=== PATIENT | male | born 1980 | race African-American/Black ===

== ENCOUNTER 2017-07-18 08:15 | Emergency (ER) | payer SELFPAY ==
--- NOTE | 2017-07-18 09:13 | ED Physician Documentation ---
Lower Extremity Injury - HISTORIAN Historian: patient - HPI Stated Complaint: foot injury Chief Complaint: Lower Extremity Injury Where: home Severity: moderate Context: direct blow (ran into wall) Modifying Factors:: pain on movement (2, 3, 4th toes) - ROS CONST: no problems CVS/RESP: none GI/: denies: problems urinating, nausea, vomiting, other MS/SKIN/LYMPH: none NEURO: denies: headache, head injury, anxiety, depression - PAST HX Past History: none Allergies/Adverse Reactions: Allergies Allergy/AdvReac Type Severity Reaction Status Date / Time ibuprofen Allergy Mild Verified 07/18/17 08:28 naproxen Allergy Verified 07/18/17 08:28 Home Medications: Ambulatory Orders Medication Instructions Recorded Albuterol Sulfate [ProAir 1 puff INH DAILY 07/18/17 RespiClick] - SOCIAL HX Smoking History: cigarettes - FAMILY HX Family History: denies: none - VITAL SIGNS Vital Signs: Vital Signs Temp Pulse Resp BP Pulse Ox 98.6 F 80 16 115/80 98 07/18/17 08:15 07/18/17 09:30 07/18/17 09:30 07/18/17 09:30 07/18/17 09:30 - REVIEWED ASSESSMENTS Nursing Assessment Reviewed: Yes Vitals Reviewed: Yes ED Results Lab/Radiology - Radiology Radiology Impressions: Three views of right foot CLINICAL HISTORY: Injury. Pain. FINDINGS: Examination right foot in plantar, lateral and oblique views demonstrates degenerative changes with narrowing of the 1st metatarsophalangeal joint and minimal osteophyte formation. There is no evident fracture and no lytic or blastic lesion. IMPRESSION: Degenerative changes. No fracture. Electronically signed on Jul 18, 2017 8:59:40 AM CDT by: Hank Herrera - Orders Orders: ED Orders Category Date Time Status FOOT 3 VIEWS OR MORE [RAD] Stat Exams 07/18/17 Taken Lower Extremities Injury Phy - Physical Exam General Appearance: mild distress Ankle: bilateral: non-tender, normal inspection, normal range of motion, no evidence of injury Foot: right foot: soft tissue tenderness (2nd toe), other (PPP 2+, no abrasion; ROM intact. ), left foot: non-tender, bilateral foot: normal inspection, normal range of motion, no evidence of injury Gait: normal Neuro/Vascular/Tendon: no vascular compromise, motor nml, sensation nml, ROM nml Resp/CVS: reg. rate & rhythm Discharge Clincal Impression: Foot contusion Qualifiers: Encounter type: initial encounter Laterality: right Qualified Code(s): S90.31XA - Contusion of right foot, initial encounter Referrals: Primary Doctor,No [Primary Care Provider] - 2 Days Condition: Stable Disposition: 01 HOME, SELF-CARE Decision to Admit: NO Decision Time: 09:13
[2017-07-18 09:31] VITALS: BP 115/80
--- NOTE | 2017-07-18 14:33 | Diagnostic Imaging Report ---
RIOS HUIZAR (ASSISTANT DIRECTOR OF RESIDENCE LIFE) - ER [facility] [address] [facility].[address] [address] Report Submission Date: Jul 18, 2017 8:59:40 AM CDT Patient Study Name: TOMMY VICKERS Date: Jul 18, 2017 8:34:08 AM CDT Modality Type: DX Gender: M Description: LOWER EXTREMITY : 78 Institution: [facility] Physician: RIOS HUIZAR (JOSEFINA) - ER Three views of right foot CLINICAL HISTORY: Injury. Pain. FINDINGS: Examination right foot in plantar, lateral and oblique views demonstrates degenerative changes with narrowing of the 1st metatarsophalangeal joint and minimal osteophyte formation. There is no evident fracture and no lytic or blastic lesion. IMPRESSION: Degenerative changes. No fracture. Electronically signed on Jul 18, 2017 8:59:40 AM CDT by: Hank LOUISE
--- NOTE | 2017-07-19 06:41 | Diagnostic Imaging Report ---
RIOS HUIZAR (MANAGER FORENSIC) - ER [facility] [address] [facility].[address] [address] Report Submission Date: Jul 18, 2017 8:59:40 AM CDT Patient Study Name: TOMMY VICKERS Date: Jul 18, 2017 8:34:08 AM CDT Modality Type: DX Gender: M Description: LOWER EXTREMITY : 78 Institution: [facility] Physician: RIOS HUIZAR (JOSEFINA) - ER Three views of right foot CLINICAL HISTORY: Injury. Pain. FINDINGS: Examination right foot in plantar, lateral and oblique views demonstrates degenerative changes with narrowing of the 1st metatarsophalangeal joint and minimal osteophyte formation. There is no evident fracture and no lytic or blastic lesion. IMPRESSION: Degenerative changes. No fracture. Electronically signed on Jul 18, 2017 8:59:40 AM CDT by: Hank LOUISE
== END 2017-07-18 09:23 | disposition home or self-care (01) ==
LOC: ED 08:15
DX: S90.31XA Contusion of right foot, initial encounter (principal); X58.XXXA Exposure to other specified factors, initial encounter; Y92.9 Unspecified place or not applicable; Y93.89 Activity, other specified
CPT/HCPCS: 73630; 99282

== ENCOUNTER 2018-02-14 14:46 | Emergency (ER) | payer SELFPAY ==
--- NOTE | 2018-02-14 15:09 | ED Physician Documentation ---
Shoulder Injury/Pain - HISTORIAN Historian: patient - HPI Stated Complaint: PAIN Chief Complaint: Shoulder Injury/ Pain Additional Information: Patient presents to ED with a 1 week history of right shoulder/right chest and right rib pain. 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 The following day he began to experience right chest pain radiating to his right shoulder and right neck. He rate the pain 7/10 with movement and 2/10 with rest. Moving his right arm makes the pain worse, resting improves the pain. He states a hot shower make the pain better. He denies shortness of breath, nausea/vomiting or diaphoresis. He does not have a strong family history of cardiac issues. Onset: days ago (7) Where: work Severity: moderate Pain: persistent Context: other (over use) Associated Symptoms: denies: weakness, tingling, unable to move shoulder, numbness Further Comments: no - ROS CONST: denies: fever CVS/RESP: denies: shortness of breath, cough GI/: denies: nausea, vomiting MS/SKIN/LYMPH: neck pain NEURO: none - PAST HX Past History: none Allergies/Adverse Reactions: Allergies Allergy/AdvReac Type Severity Reaction Status Date / Time ibuprofen Allergy Mild Verified 02/14/18 14:55 naproxen Allergy Verified 02/14/18 14:55 Home Medications: Ambulatory Orders Medication Instructions Recorded Albuterol Sulfate [ProAir 1 puff INH DAILY 07/18/17 RespiClick] Cyclobenzaprine HCl [Flexeril] 10 mg PO Q8 #60 tablet 02/14/18 - SOCIAL HX Smoking History: cigarettes Alcohol Use: none Drug Use: none - FAMILY HX Family History: no significant history - VITAL SIGNS Vital Signs: Vital Signs Temp Pulse Resp BP Pulse Ox 99.3 F 58 L 18 131/73 99 02/14/18 14:50 02/14/18 14:50 02/14/18 14:50 02/14/18 14:50 02/14/18 14:50 - REVIEWED ASSESSMENT Nursing Assessment Reviewed: Yes Vitals Reviewed: Yes ED Results Lab/Radiology - Orders Orders: ED Orders Category Date Time Status SHOULDER 2 VIEWS OR MORE [RAD] Stat Exams 02/14/18 Ordered EKG WITH COMPARISON Stat Ther 02/14/18 Ordered Shoulder Injury Physical Exam - Physical Exam General Appearance: no acute distress, alert Shoulder: no acute distress, soft-tissue tenderness (right upper trapezius, right pectoral), limited abduction Upper Extremity: No: swelling Neuro: sensation nml, motor nml Vascular: no vascular compromise, motor nml Skin: warm/dry, normal color Head/ENT: nml inspection Respiratory: breath sounds nml, no resp. distress, other (pain reproducible with chest wall compression) CVS: reg rate & rhythm, heart sounds normal Abdomen: soft, normal bowel sounds, non-tender Discharge Clincal Impression: Muscle strain, shoulder region Qualifiers: Encounter type: initial encounter Laterality: right Qualified Code(s): S46.911A - Strain of unspecified muscle, fascia and tendon at shoulder and upper arm level, right arm, initial encounter Prescriptions: Cyclobenzaprine HCl [Flexeril] 10 mg PO Q8 #60 tablet Referrals: Primary Doctor,No [Primary Care Provider] - 2 Days Additional Instructions: Apply heat/ice to area as needed. Use Tylenol and/or ibuprofen as needed for pain. Stay active and use stretching exercises to improve mobility Condition: Good Disposition: 01 HOME, SELF-CARE Decision to Admit: NO Date of Decison to Admit: 02/14/18 Decision Time: 15:22
[2018-02-14 15:31] VITALS: BP 104/68
--- NOTE | 2018-02-14 17:40 | Diagnostic Imaging Report ---
TC ARAUZ [facility] [address] [facility] [address] [address] Report Submission Date: Feb 14, 2018 3:33:12 PM CDT Patient Study Name: TOMMY VICKERS Date: Feb 14, 2018 3:07:21 PM CDT Modality Type: DX Gender: M Description: SHOULDER : 78 Institution: [facility] Physician: TC ARAUZ Examination: Plain film right shoulder History: RT SHOULDER PAIN X3 DAYS, NO KNOWN INJURY (Hx) Comparison exams: None provided Findings: 3 views of the right shoulder demonstrate normal cortical margins. No evidence for fracture or dislocation. No soft tissue abnormality Impression: No acute osseous process. Electronically signed on Feb 14, 2018 3:33:12 PM CDT by: Dylan LOUISE
== END 2018-02-14 15:39 | disposition home or self-care (01) ==
LOC: ED 14:46
DX: S46.911A Strain of unspecified muscle, fascia and tendon at shoulder and upper arm level, right arm, initial encounter (principal); X50.0XXA Overexertion from strenuous movement or load, initial encounter; Y92.9 Unspecified place or not applicable; Y93.9 Activity, unspecified; Y99.9 Unspecified external cause status
CPT/HCPCS: 73030; 99283

== ENCOUNTER 2018-11-21 17:34 | Emergency (ER) | payer OTHER ==
--- NOTE | 2018-11-21 17:44 | ED Physician Documentation ---
Ankle Injury - HISTORIAN Historian: patient - HPI Stated Complaint: pain in left ankle since Tuesday Chief Complaint: Ankle Injury Onset: days ago (3) Where: home Severity: severe ("the worst pain I have ever felt" ) r: other (he is not sure possibly during basketball ) Modifying Factors:: pain on movement Further Comments: yes (He states he was playing basketball on Tuesday and he had had ankle pain since then> He has not tried any OTC meds. He has no other injury. He did walk in to the room but has increased pain with walking) - ROS CONST: no problems - PAST HX Past History: none Immunizations: UTD Allergies/Adverse Reactions: Allergies Allergy/AdvReac Type Severity Reaction Status Date / Time ibuprofen Allergy Mild Verified 11/21/18 17:39 naproxen Allergy Verified 11/21/18 17:39 Home Medications: Ambulatory Orders Medication Instructions Recorded Albuterol Sulfate [ProAir 1 puff INH DAILY 07/18/17 RespiClick] - SOCIAL HX Smoking History: non-smoker Alcohol Use: none Drug Use: none - FAMILY HX Family History: none - VITAL SIGNS Vital Signs: Vital Signs Temp Pulse Resp BP Pulse Ox 104/68 02/14/18 15:30 - REVIEWED ASSESSMENTS Nursing Assessment Reviewed: Yes Vitals Reviewed: Yes Progress - Progress Progress: 1825: discussed results and plan will put in referral to Dr Arely GOLDMAN ED Results Lab/Radiology - Radiology Radiology Impressions: Left ankle, three views. History: LEFT ANKLE INJURY Findings: The osseous structures are intact without acute fracture. The ankle mortise is normal . There is no soft tissue swelling. Impression: 1. No acute osseous abnormality. Electronically signed on Nov 21, 2018 6:03:26 PM CDT by: Moreno Reed Ankle Injury Physical Exam - Physical Exam General Appearance: no acute distress Foot: right foot: non-tender, left foot: pain, bilateral foot: normal inspection, normal range of motion, no evidence of injury, N/A: deformity, limited range of motion, nodule, soft tissue tenderness, swelling Ankle: right: non-tender, left: bone tenderness, pain, bilateral: normal inspection, normal range of motion, no evidence of injury, N/A: deformity, ecchymosis, joint effusion, limited range of motion, nodules, soft tissue tenderness, swelling Gait: limited by pain Neuro: sensation nml Vascular: no vascular compromise Tendons: tendon function nml Leg/Knee/Thigh: uninjured above ankle Skin: intact, warm Head/ENT: nml inspection Neck/Back: nml inspection Resp/CVS: chest non-tender, breath sounds nml, heart sounds nml, no resp. distress, lungs clear, reg. rate & rhythm Abdomen: non-tender Discharge Clincal Impression: Ankle pain, left Qualifiers: Chronicity: acute Qualified Code(s): M25.572 - Pain in left ankle and joints of left foot Referrals: Primary Doctor,No [Primary Care Provider] - 2 Days Comments: 1. Keep area ice and elevated as needed for symptom relief 2. Tramadol 50 mg take 1 by mouth every 12 hours as needed for pain 3. Follow up with PCP in 2 -4 days if no improvement 4. Return to ER for increasing pain Condition: Stable Disposition: 01 HOME, SELF-CARE Decision to Admit: NO Date of Decison to Admit: 11/21/18 Decision Time: 18:27
[2018-11-21] MEDS ORDERED: oxyCODONE/ACETAMINOPHEN 5/325 TABLET PO ONE (17:57)
--- NOTE | 2018-11-21 18:06 | Diagnostic Imaging Report ---
NOVA WINTERS [facility] [address] [facility] [address] [address] Report Submission Date: Nov 21, 2018 3:56:31 PM CDT Patient Study Name: LOBO YOUNG Date: Nov 21, 2018 3:27:24 PM CDT Modality Type: DX Gender: M Description: FOOT 3 VIEWS OR MORE : [birth year] Institution: [facility] Physician: NOVA WINTERS Examination: Plain film left foot History: LEFT FOOT PAIN, GREAT TOE INJURY PT WAS SHIELDED Findings: 3 views of the left foot demonstrates normal cortical margins. No fracture or dislocation. Normal residual epiphyses. No soft tissue swelling. No joint effusion. Impression: No acute osseous process. Electronically signed on Nov 21, 2018 3:56:31 PM CDT by: Dylan LOUISE
[2018-11-21 19:10] VITALS: BP 133/85
== END 2018-11-21 19:08 | disposition home or self-care (01) ==
LOC: ED 17:34
DX: M25.572 Pain in left ankle and joints of left foot (principal)
CPT/HCPCS: 73610; 99283; A9270